=== PATIENT | female | born 1975 | race Caucasian/White ===

== ENCOUNTER 2020-07-08 15:05 | Outpatient (CLI) | payer OTHER | END 2020-07-08 15:26 | disposition home or self-care (01) | LOC: RAD 15:05 | PROVIDERS: ATTEND General Practice | DX: R07.89 Other chest pain (principal) ==

== ENCOUNTER 2023-04-07 12:54 | Outpatient (CLI) | payer OTHER | END 2023-04-07 13:01 | disposition home or self-care (01) | LOC: MAMO-SONO 12:54 | PROVIDERS: ATTEND Internal Medicine Cardiovascular Disease | DX: Z12.31 Encounter for screening mammogram for malignant neoplasm of breast (principal); Z85.3 Personal history of malignant neoplasm of breast ==